=== PATIENT | female | born 1965 | race Caucasian/White ===

== ENCOUNTER 2018-03-16 10:57 | Emergency (ER) | payer BC ==
[~2018-03-16] VITALS: Ht 162.6 cm; Wt 90.2 kg
[2018-03-16 12:13] LABS: HEMATOCRIT 43.8 % (36.0-46.0); HEMOGLOBIN 14.8 G/DL (11.9-15.5); MCH 30.1 PG (29.0-34.0); MCHC 33.8 G/DL (30.0-36.0); PLATELET COUNT 336 K/uL (156-360); RBC DIS.WIDTH-CV 13.1 % (11.8-14.6); RBC DIS.WIDTH-SD 42.5 % (39-53); RED BLOOD COUNT 4.92 M/uL (3.80-5.20); WHITE BLOOD COUNT 5.1 K/uL (4.1-10.2)
[2018-03-16 12:17] LABS: APPEARANCE CLOUDY ((CLEAR)); BILIRUBIN NEGATIVE; BLOOD NEGATIVE; COLOR AMBER ((YELLOW)); GLUCOSE (STRIP) NEGATIVE; KETONES NEGATIVE; LEUKOCYTES TRACE; NITRITE NEGATIVE; PROTEIN (STRIP) 30; SPECIFIC GRAVITY 1.027 (1.000-1.030); UROBILINOGEN 0.2 MG/DL (0.2-1.0)
[2018-03-16 12:21] LABS: CHLORIDE 106 mEq/L (99-109); POTASSIUM 3.8 mEq/L (3.7-5.4); SODIUM 140 mEq/L (136-147)
[2018-03-16 12:22] LABS: GLUCOSE 97 mg/dL (70-99)
[2018-03-16 12:26] LABS: CREATININE 0.8 mg/dL (0.6-1.3); GFR ESTIMATE (CALCULATED) > 59 mL/min/
[2018-03-16 12:27] LABS: UREA NITROGEN (BUN) 13 mg/dL (9-23)
[2018-03-16 12:36] LABS: BACTERIA 3+ /HPF; EPITHELIAL CELLS 1+ /HPF; MUCUS NONE SEEN /LPF; RED BLOOD CELLS NONE SEEN /HPF (0-5)
[2018-03-16 12:37] LABS: QUANTITATIVE HCG < 4.0 MIU/ML
[2018-03-16] MEDS ORDERED: VALIUM5 MG PO (13:32)
[2018-03-16] MEDS ORDERED: MOTRIN800 MG PO (13:33)
[2018-03-16 13:45] VITALS: BP 125/76
== END 2018-03-16 13:54 | disposition home or self-care (01) ==
LOC: EME 10:57
PROVIDERS: Emergency Medicine
DX: S39.012A Strain of muscle, fascia and tendon of lower back, initial encounter (principal); X50.0XXA Overexertion from strenuous movement or load, initial encounter; Y93.89 Activity, other specified; M32.9 Systemic lupus erythematosus, unspecified
CPT/HCPCS: 80048; 81003; 84702; 85027; 87086; 99281; 99285; J2060